=== PATIENT | female | born 1970 ===

== ENCOUNTER 2018-04-06 06:44 | Day surgery (SDC) | payer BC ==
[~2018-04-06 06:44] MED LIST: Buffered Lidocaine 0.9% SYRIN* 5 ML/SYR SYRINGE INTRADERM ONE
[2018-04-06] MEDS ORDERED: ceFOXitin(*) 2 GM in NS 0.9% 50 ML* 50 ML IVPB ONE (07:00)
[2018-04-06] MEDS ORDERED: ceFOXitin(*) 1 GM VIAL ONE (07:01)
[2018-04-06 07:39] LABS: ABS Basophils 0 10^3/ul (0-0.2); ABS Eosinophils 0.1 10^3/ul (0-0.6); ABS Lymphocytes 1.5 10^3/ul (1.0-4.8); ABS Monocytes 0.5 10^3/ul (0-0.8); ABS Neutrophils 3.7 10^3/ul (1.5-7.7); ABS Nucleated RBC 0 10^3/ul; Eosinophil % 2.1 % (0-6); Hematocrit 37 % (35-47); Hemoglobin 12.6 g/dl (12.0-16.0); Lymphocyte % 26.3 % (25-47); Mean Corpuscular HGB Conc 34 g/dl (31-36); Mean Corpuscular Hemoglobin 29 pg (27-31); Mean Corpuscular Volume 85 fL (80-97); Mean Platelet Volume 8.2 um3 (7.4-10.4); Nucleated Red Blood Cells % 0.1; Platelet Count 204 10^3/ul (150-450); Red Blood Count 4.43 10^6/ul (4.0-5.4); Red Cell Distribution Width 14 % (10.5-15); White Blood Count 5.8 10^3/ul (3.5-10.8)
[2018-04-06] MEDS ORDERED: Midazolam* 1 MG/ML 2 ML VIAL (2 MG) ONE (07:58)
[2018-04-06] MEDS ORDERED: fentaNYL* 50 MCG/ML 2 ML VIAL (100 MCG VIAL) ONE (07:58)
[2018-04-06] MEDS ORDERED: Nalbuphine* 20 MG/ML 1 ML VIAL IV PRN (08:01)
[2018-04-06] MEDS ORDERED: Ondansetron ODT TAB* 4 MG PO PRN (08:01)
[2018-04-06] MEDS ORDERED: Naloxone* 0.4 MG/ML 1 ML VIAL IV PRN (08:01)
[2018-04-06] MEDS ORDERED: HYDROcodone/ACETAMIN 5-325 MG* 1 TAB PO PRN (08:01)
[2018-04-06] MEDS ORDERED: Acetaminophen TAB* 325 MG PO PRN (08:01)
[2018-04-06] MEDS ORDERED: fentaNYL* 50 MCG/ML 2 ML VIAL (100 MCG VIAL) IV PRN (08:01)
[2018-04-06] MEDS ORDERED: Scopolamine 1.5 mg* PATCH TRANSDERM PRN (08:01)
[2018-04-06] MEDS ORDERED: DiMENhydriNATE IV* 50 MG/ML VIAL IV PUSH PRN (08:01)
[2018-04-06] MEDS ORDERED: PROCHLORPERAZINE INJ 5 MG/ML 2 ML VIAL IV PRN (08:01)
[2018-04-06] MEDS ORDERED: diPHENhydraMINE IV* 50 MG/ML 1 ml VIAL (BENADRYL) IV PRN (08:01)
[2018-04-06] MEDS ORDERED: Lidocaine 1% INJ* 10 MG/ML 30 ML SDV ONE (08:34)
[2018-04-06] MEDS ORDERED: Scopolamine 1.5 mg* PATCH ONE (08:35)
[2018-04-06] MEDS ORDERED: Ondansetron ODT TAB* 4 MG ONE (08:35)
[2018-04-06] MEDS ORDERED: Lidocaine 2% PF * 5 ML VIAL ONE (08:57)
[2018-04-06] MEDS ORDERED: Dexamethasone IV* 4 MG/ML 1 ML (4 MG) ONE (08:58)
[2018-04-06] MEDS ORDERED: Propofol* 10 MG/ML 20 ML BTL IV PUSH ONE (08:58)
[2018-04-06] MEDS ORDERED: Famotidine IV* 10 MG/ML 2 ML (20 mg) ONE (08:58)
[2018-04-06] MEDS ORDERED: Ketorolac INJ* 30 MG/ML 1 ML VIAL ONE (09:15)
[2018-04-06 09:59] VITALS: BP 164/108
--- NOTE | 2018-04-07 03:37 | OP ---
DATE OF OPERATION: 04/06/18 - [facility] DATE OF : 74 SURGEON: Augusta Pak MD ANESTHESIOLOGIST: Dr. Rodriguez. ANESTHESIA: General endotracheal with paracervical block. PRE-OP DIAGNOSIS: Menometrorrhagia. POST-OP DIAGNOSES: 1. Menometrorrhagia. 2. Endometrial polyps. OPERATIVE PROCEDURE: 1. Dilation and curettage. 2. Hysteroscopic MyoSure resection of endometrial polyp. ESTIMATED BLOOD LOSS: Minimal. URINE OUTPUT: 100 cc of clear yellow urine. DEFICIT: 121 cc of saline. FLUIDS: 600 cc of crystalloid. FINDINGS: Revealed a small approximately 1 cm endometrial polyp coming from the anterior wall near the left tubal ostia, normal appearing tubal ostia seen, normal uterine cavity without other masses or submucosal fibroid. SPECIMENS: Endometrial curettings and polyp. COMPLICATIONS: None apparent. DISPOSITION: Stable to recovery room. DESCRIPTION OF PROCEDURE: The patient was placed in dorsal lithotomy position. The perineum and vagina were prepped and draped in a sterile standard fashion. The patient was identified with universal protocol for correct procedure, position and patient. A self-cath was inserted for drainage of 100 cc of clear yellow urine. Self-cath was removed. Sterile speculum was inserted. Cervix was visualized and para cervical block was performed using lidocaine 1 % 10 cc and then grasped on the anterior lip with a single-tooth tenaculum and dilated to #7 Hegar dilator. MyoSure hysteroscope was then inserted. Uterine cavity was noted to have a normal contour. Tubal ostia were normal. There was a small anterior uterine polyp noted. The MyoSure was then engaged and the endometrial polyp was resected in a standard fashion. Hysteroscope was removed. A sharp curettage was performed. The single-tooth tenaculum was removed. Sterile speculum was removed. All sponge, instrument, and blade counts were correct throughout the case. The patient tolerated the procedure well and went to recovery room in stable condition. [id number]/[facility] #: [id number] [facility]
[2018-04-09] MEDS ORDERED: Scopolamine PATCH Remove* 1 NOTE MISC PATCH OFF ONE (08:03)
== END 2018-04-06 10:13 | disposition home or self-care (01) ==
LOC: OR 06:44
PROVIDERS: ATTEND Obstetrics & Gynecology
DX: N92.0 Excessive and frequent menstruation with regular cycle (principal); N84.0 Polyp of corpus uteri; R03.0 Elevated blood-pressure reading, without diagnosis of hypertension
CPT/HCPCS: 36415; 81025; 85025; 86850; 86900; 86901; 88305; A9270-GY; J0694; J1100; J1885; J2250; J2704; J3010

== ENCOUNTER 2019-05-18 06:58 | Observation (INO) | payer BC ==
[~2019-05-18 06:58] MED LIST changes: +Acetaminophen TAB* 325 MG PO PRN; -Buffered Lidocaine 0.9% SYRIN* 5 ML/SYR SYRINGE INTRADERM ONE; +Buffered Lidocaine 1% SYRIN* 1 ML/SYRINGE INTRADERM ONE; +HYDROmorphone INJ1* 1 MG/ML SYRINGE IV PRN; +Ketorolac INJ* 30 MG/ML 1 ML VIAL IV PRN; +Lactated Ringers 1000 ML Bag* 1,000 ML IV SCH; +Naloxone* 0.4 MG/ML 1 ML VIAL IV PRN; +Ondansetron ODT TAB* 4 MG PO PRN; +oxyCODONE TAB* 5 MG TAB PO PRN
[2019-05-18] MEDS ORDERED: ceFAZolin 2 GM in NS PREMIX(*) 2 GM/100 ML BAG IVPB ONE (07:06)
[2019-05-18] MEDS ORDERED: Bupivacaine 0.5% W/EPI SDV* 30 ML VIAL ONE (08:02)
[2019-05-18] MEDS ORDERED: fentaNYL* 50 MCG/ML 2 ML VIAL (100 MCG VIAL) ONE ×3 (08:16→12:21)
[2019-05-18] MEDS ORDERED: Midazolam* 1 MG/ML 2 ML VIAL (2 MG) ONE (08:16)
[2019-05-18] MEDS ORDERED: Lidocaine 2% PF * 5 ML VIAL ONE ×2 (08:17→09:57)
[2019-05-18] MEDS ORDERED: Propofol* 10 MG/ML 20 ML BTL ONE (08:17)
[2019-05-18] MEDS ORDERED: Rocuronium* 10 MG/ML VIAL ONE ×2 (08:17→11:13)
[2019-05-18] MEDS ORDERED: DiMENhydriNATE IV* 50 MG/ML VIAL IV PUSH PRN (10:36)
[2019-05-18] MEDS ORDERED: Naloxone* 0.4 MG/ML 1 ML VIAL IV PRN (10:36)
[2019-05-18] MEDS ORDERED: Acetaminophen TAB* 325 MG PO PRN (10:36)
[2019-05-18] MEDS ORDERED: Dexamethasone IV* 4 MG/ML 1 ML (4 MG) ONE (11:17)
[2019-05-18] MEDS ORDERED: Metoclopramide IV* 5 MG/ML 2 ML VIAL ONE (11:17)
[2019-05-18] MEDS ORDERED: Ondansetron INJ* 2 MG/ML VIAL ONE (11:17)
[2019-05-18] MEDS ORDERED: Ketorolac INJ* 30 MG/ML 1 ML VIAL ONE (11:17)
[2019-05-18] MEDS ORDERED: Neostigmine Methylsulfate* 1 MG/ML 10 ML VIAL (1 mg/ml) ONE (11:51)
[2019-05-18] MEDS ORDERED: Glycopyrrolate IV* 0.2 MG/ML 1 ML VIAL ONE (11:51)
[2019-05-18] MEDS ORDERED: HYDROmorphone INJ1* 1 MG/ML SYRINGE IV PRN (12:00)
[2019-05-18] MEDS ORDERED: Ibuprofen TAB* 600 MG PO PRN (12:00)
[2019-05-18] MEDS ORDERED: Lactated Ringers 1000 ML Bag* 1,000 ML IV SCH (12:00)
[2019-05-18] MEDS ORDERED: Ondansetron INJ* 2 MG/ML VIAL IV PRN (12:00)
[2019-05-18] MEDS: fentaNYL* 50 MCG/ML 2 ML VIAL (100 MCG VIAL) IV PRN ×5 (12:05→12:40)
[2019-05-18] MEDS ORDERED: oxyCODONE TAB* 5 MG TAB ONE ×2 (12:24→13:02)
[2019-05-18] MEDS: oxyCODONE TAB* 5 MG TAB PO PRN ×2 (12:25→13:03)
--- NOTE | 2019-05-18 14:00 | OP ---
OPERATIVE REPORT: DATE OF OPERATION: 05/18/19 DATE OF : 74 SURGEON: Alton Rowe MD [employer] OPERATOR: Jack Lawrence MD ANESTHESIA: General endotracheal tube. PRE-OP DIAGNOSES: 1. Fibroid uterus. 2. Menorrhagia. POST-OP DIAGNOSES: 1. Fibroid uterus. 2. Menorrhagia. OPERATIVE PROCEDURE: Laparoscopic supracervical hysterectomy and bilateral salpingectomy. ESTIMATED BLOOD LOSS: 100 cc. SPECIMENS: Include uterus and fallopian tubes. FINDINGS: On exam under anesthesia, uterus was mid position. Cervix, vagina, and vulva appeared nor mal. On laparoscopy, the anterior bladder flap appeared normal. The cul-de-sac appeared normal. Bot h tubes and ovaries appeared normal and liver surface was smooth. The uterus was bulky approximately 12-week size. DESCRIPTION OF PROCEDURE: The patient was identified, procedure identified as a laparoscopic suprace rvical hysterectomy. The patient was taken to the operating room, prepped and draped in the usual fa shion in the dorsal lithotomy position under general anesthesia. The weighted speculum was placed in the posterior vagina and a ClearView manipulator was placed in the cervical os for manipulation and a Irwin catheter was placed. A small infraumbilical incision was made and carried down through fat, fascia, and peritoneum. The Dez retractor was placed in the abdominal incision and the PlusFourSix s NeoSystemsdard platform was placed. Using the 30- degree scope, the fallopian tube on the right was grasped in the mid portion, followed out to its fimbriated ends and using the LigaSure was excised first cau terizing along the mesovarium to the level of the round ligament. First, the ovarian ligament was ca uterized and then incised and then the broad ligament was cauterized and incised and the round ligame nt was cauterized and incised. A bladder flap was created along the right side using sharp and blunt dissection. The left fallopian tube was grasped at the end portion and the mesovarium was then caute rized and cut. This was brought down to the level of the broad ligament and then the fallopian tube again was excised. The ovarian ligament was then cauterized and cut and the round ligament on this s haider was also cauterized and cut using the LigaSure. A bladder flap was created further with blunt an d sharp dissection. The uterine vessels on the left were cauterized and then on the right. Again, th e uterine vessels were skeletonized and then cauterized using the LigaSure. Both sides were cauteriz ed until the uterus was seen to gaston and the bladder was well away during that part of the procedur e. The SupraLoop using a 110 pure cut was placed over the uterus down at the level of the cervicoute rine junction. Using a 110 pure cut, again the SupraLoop was inspected and found to be free bowel. The manipulator was removed and using a 110 pure cut, the uterus was excised from the stump of the ce rvix. A sponge stick was placed and used to manipulate the cervix and the LigaSure was used to caute rize any bleeding vessels. The unipolar cautery was used to cauterize the endocervix and any bleeders on the surface of the cervical stump. Good hemostasis was verified. Copious irrigation was utilize d and suctioned out. A GelPOINT bag was placed and the uterus was placed within the bag and the bag was brought out through the umbilical incision. The uterus was then morcellated using a knife in a ci rcular fashion until the total uterus was excised. The bag was removed and found to be intact. The GelPOINT was replaced and the stump was reinspected, found to be hemostatic. Copious irrigation was utilized and suctioned out. All instruments were removed from the abdomen. The abdomen was deflated of CO2. The fascia was then closed using 2-0 Vicryl in a running fashion. Good hemostasis was seen in the subcu. The skin was closed using 3-0 Vicryl in a subcuticular fashion and then skin glue was applied. The sponge stick was removed and the patient returned to recovery room in stable condition. All sponge and instrument counts were correct. [id number]/[facility] #: [id number]
[2019-05-18 18:01] LABS: ABS Lymphocytes 0.7 10^3/ul (1.0-4.8); ABS Monocytes 0.2 10^3/ul (0-0.8); ABS Neutrophils 11.2 10^3/ul (1.5-7.7); Hematocrit 39 % (35-47); Hemoglobin 13.4 g/dL (12.0-16.0); Lymphocyte % 5.9 %; Mean Corpuscular HGB Conc 34 g/dL (31-36); Mean Corpuscular Hemoglobin 29 pg (27-31); Mean Corpuscular Volume 87 fL (80-97); Mean Platelet Volume 7.8 fL (7.4-10.4); Platelet Count 199 10^3/uL (150-450); Red Blood Count 4.54 10^6 /uL (3.70-4.87); Red Cell Distribution Width 14 % (10-15); White Blood Count 12.1 10^3/uL (3.5-10.8)
[2019-05-18] MEDS: oxyCODONE/Acetamin 5/325 MG* TAB PO PRN (19:44)
[2019-05-19 09:02] VITALS: BP 135/92
[2019-05-19] MEDS: oxyCODONE/Acetamin 5/325 MG* TAB PO PRN ×2 (10:54)
== END 2019-05-19 11:00 | disposition home or self-care (01) ==
LOC: OR 06:58 → SSU 12:00
PROVIDERS: ADMIT Obstetrics & Gynecology; ATTEND Obstetrics & Gynecology
PROC: 0UT74ZZ Resection of Bilateral Fallopian Tubes, Percutaneous Endoscopic Approach (ICD-10-PCS; 2019-05-18)
PROC: 0UT94ZL Resection of Uterus, Supracervical, Percutaneous Endoscopic Approach (ICD-10-PCS; principal; 2019-05-18 08:30)
DX: D25.9 Leiomyoma of uterus, unspecified (principal); N92.0 Excessive and frequent menstruation with regular cycle; N94.6 Dysmenorrhea, unspecified; I10 Essential (primary) hypertension
CPT/HCPCS: 36415; 81025; 85025; 88307; 96374; A9270-GY; G0378; J0690; J1100; J1885; J2250; J2405; J2704; J2710; J2765; J3010